=== PATIENT | female | born 1945 | race Caucasian/White ===

== ENCOUNTER → 2016-10-09 17:11 | Outpatient (CLI) | payer MEDICARE, BC ==
[2015-12-11 06:51] VITALS: BMI 24.3
[~2016-10-09 17:11] MED LIST: ASPIRIN EC81 M1 PO; LEXAPRO5 MG PO; LIPITOR10 MG PO; PREVACID30 MG PO; VITAMIN D PO
== END | disposition home or self-care (01) ==
LOC: D.MAMMO 13:30
DX: Z12.31 Encounter for screening mammogram for malignant neoplasm of breast (principal)

== ENCOUNTER → 2016-12-22 13:29 | Outpatient (CLI) | payer MEDICARE, BC ==
[2015-12-11 06:51] VITALS: BMI 24.3
== END | disposition home or self-care (01) ==
LOC: D.CT 13:29
DX: R41.3 Other amnesia (principal)

== ENCOUNTER 2017-11-17 06:18 | Day surgery (SDC) | payer MEDICARE, BC ==
--- NOTE | ~2017-11-17 | OP ---
PATIENT NAME: AURELIANO AGUIRRE MEDICAL RECORD: [id number] :47 LOCATION:D.OPS ADMISSION DATE: SURGEON: GLEN NUR MD DATE OF OPERATION: 11/17/2017 PREOPERATIVE DIAGNOSES: 1. Symptomatic incisional hernia. 2. History of colon polyps, in need of a surveillance colonoscopy. POSTOPERATIVE DIAGNOSES: 1. Symptomatic incarcerated incisional hernia. 2. History of colon polyps, in need of a surveillance colonoscopy. 3. One ascending colon polyp, sessile, 8 mm. PROCEDURE: 1. Laparoscopic incarcerated incisional hernia repair with Ventralight ST mesh. 2. Total colonoscopy to cecum. 3. Hot biopsy forceps polypectomy times 1. SURGEON: Glen Nur MD FOREIGN POLICY OFFICER: None. BLOOD LOSS: Minimal. ANESTHESIA: General. COMPLICATIONS: None. The risks, possible complications, and alternatives to the procedure were explained to the patient. She elects to proceed. The discussion specifically included, but was not limited to, bleeding requiring emergency reoperation, infection, intestinal injury, and an open procedure. OPERATIVE COURSE: The patient was conveyed to the operating room electively on 11/17/2017. General anesthesia was induced by the anesthesia staff. The abdomen was sterilely prepped and draped. A transverse incision was accomplished in the left upper quadrant. A Veress needle was inserted through the incision into the peritoneal cavity. CO2 insufflation was begun. Once a sufficient pneumoperitoneum had been achieved, a 12-mm trocar was inserted at this site. Under direct internal vision utilizing a television camera, a 5-mm trocar was inserted in the left side of the abdomen. Then, two 5-mm trocars were inserted in the right side of the abdomen. During insertion of the Veress needle and all trocars, there appeared to have been no injury to the bowels, any intraperitoneal or retroperitoneal structures. Only omentum was incarcerated within the incisional hernia. The omentum was taken down in its entirety with the Harmonic scalpel. I then divided the falciform ligament and took down the anterior portion of triangular ligament of the liver with the Harmonic scalpel. A prevesicular flap was created with the Harmonic scalpel as well. Intravenous methylene blue was given. There was no spillage of dye and therefore, no evidence of bladder or ureteral injury. I then rolled up a round Ventralight ST mesh with the [place] positioning system, advanced it down through the 12-mm trocar. A small skin cinthia was accomplished OPERATIVE REPORT [id number] AURELIANO AGUIRRE just above the hernia defect. I advanced a laparoscopic suture passer. I grabbed the tail of the positioning system and pulled up through the abdominal wall. I then cut the tail and attached the inflation device and inflated the positioning system. I then pulled the mesh up against the anterior abdominal wall. A combination of 2 tackers were used. The final herniorrhaphy was accomplished with the more tenacious of 2 tackers, the SorbaFix Tacker. The positioning system was removed in its entirety. The muscle at the 12-mm trocar site was closed with the Chan-Genet suture closure device and 0 Vicryl suture. The skin at the operative sites were closed with interrupted intracuticular 4-0 Vicryls. Benzoin and Steri-Strips were applied. The patient was then turned in the Christie position. A digital rectal examination was performed. The colonoscope was inserted through the anus. It was easily advanced to the cecum. Following withdrawal, I irrigated and aspirated extensively. The prep was adequate. A combination of direct imaging as well as narrow band imaging was utilized. One polyp was noted in the ascending colon. This was removed in its entirety utilizing the hot biopsy forceps polypectomy technique. I dragged the folds. The pullback was greater than an 18-minute pullback. A retroflexed view was obtained in the rectum. I then unretroflexed the scope and removed it under direct vision. I will see the patient in my office in 2-3 weeks. I will plan for her next surveillance colonoscopy take place in 3 years. TRANSINT:[id number] Voice Confirmation ID: [id number] DOCUMENT ID: [id number] GLEN NUR MD at 1019 CC: [id number] DICTATION DATE: 11/17/17 1514 [employer] MANAGER: 11/17/17 1559 [facility] 11/17/17 [id number] [place] [address]
[~2017-11-17 06:18] MED LIST changes: +ARICEPT10 MG PO; +VITAMIN B-1000 MCG/M IM; +VITAMIN B-12 PO; -VITAMIN D PO; +VITAMIN D31000 UNI2 PO
[2017-11-17 07:47] LABS: HEMATOCRIT 45.9 % (36.0-48.0); HEMOGLOBIN 15.7 g/dL (12-16); MCH 31.3 pg (26.0-34.0); MCHC 34.2 g/dL (31.0-37.0); MCV 91.4 fL (80.0-100.0); MEAN PLATELET VOLUME 10.9 fL (7.4-10.4); RBC 5.02 10x6/uL (4.00-5.40); RDW 13.1 % (11.5-14.5); WBC 4.8 10x3/uL (4.8-10.8)
[2017-11-17 08:09] VITALS: BP 123/69; BMI 25.9
== END 2017-11-17 17:25 | disposition home or self-care (01) ==
LOC: D.OPS 06:18 → D.PAN 08:45 → D.OPS 09:00 → D.PAN 09:05 → D.OPS 17:25
PROVIDERS: Anesthesiology
DX: Z12.11 Encounter for screening for malignant neoplasm of colon (principal); D12.2 Benign neoplasm of ascending colon; K43.0 Incisional hernia with obstruction, without gangrene; Z86.010 Personal history of colon polyps